=== PATIENT | female | born 2000 | race Two or more races ===

== ENCOUNTER 2021-10-12 14:42 | Emergency (ER) | payer OTHER ==
[~2021-10-12] VITALS: Ht 149.9 cm; Wt 52.6 kg
[2021-10-12] MEDS ORDERED: PROBIOTIC1 EAC4 PO (15:03)
[2021-10-12] MEDS ORDERED: PRENATA CHEWAB1 EACH PO (15:03)
== END 2021-10-12 20:30 | disposition home or self-care (01) ==
LOC: ER 14:42
DX: O26.892 Other specified pregnancy related conditions, second trimester (principal); Z3A.15 15 weeks gestation of pregnancy; R30.0 Dysuria; E86.0 Dehydration; N89.8 Other specified noninflammatory disorders of vagina; Z88.0 Allergy status to penicillin

== ENCOUNTER 2022-03-24 10:10 | Inpatient (IN) | payer OTHER ==
[~2022-03-24] VITALS: Ht 149.9 cm; Wt 2.7 kg
[~2022-03-24 10:10] MED LIST: PRENATA CHEWAB1 EACH PO; PROBIOTIC1 EAC4 PO
[2022-04-11] MEDS ORDERED: IBUPROFEN800 MG PO (07:40)
== END 2022-04-11 14:39 | disposition home or self-care (01) | DRG 788 ==
LOC: OB/GYN 10:10 → LDR 04-08 07:20 → OB/GYN 04-08 07:20 → LDR 04-09 02:43 → OB/GYN 04-09 02:44
PROVIDERS: ADMIT Specialist; ATTEND Specialist
PROC: 4A1HXCZ Monitoring of Products of Conception, Cardiac Rate, External Approach (ICD-10-PCS; 2022-04-08)
PROC: 10D00Z1 Extraction of Products of Conception, Low, Open Approach (ICD-10-PCS; principal; 2022-04-08 17:00)
DX: O62.1 Secondary uterine inertia (principal); O48.0 Post-term pregnancy; O99.824 Streptococcus B carrier state complicating childbirth; Z3A.40 40 weeks gestation of pregnancy; Z37.0 Single live birth; Z20.822 Contact with and (suspected) exposure to COVID-19